=== PATIENT | male | born 1940 | race Caucasian/White ===

== ENCOUNTER 2018-08-31 16:49 | Emergency (ER) | payer MEDICARE ==
--- NOTE | 2018-08-31 16:57 | UC ---
Shoulder Pain HPI - HPI Summary HPI Summary: 78 y/o male presents to the urgent care c/o of left shoulder pain s/p falling yesterday around 1000AM while trowing a newspaper. Pt reports he threw the newspaper very hard that he lost balance and fell on his left shoulder. No pain at rest, but when he raises it is 2/10 w/ movement. He wants to make sure his shoulder is fine since he is traveling to [place] in 3 weeks. He Pt denies LOC , dizziness, numbness or tingling sensation over the left extremity, SOB, chest pain, abdominal pain, N/V/D. - History of Current Complaint Stated Complaint: SHOULDER INJURY Time Seen by Provider: 08/31/18 16:56 Hx Obtained From: Patient Onset/Duration: Sudden Onset, Lasting Days - 1 day, Still Present Timing: Constant Severity Initially: Mild Severity Currently: Mild Pain Intensity: 1 Pain Scale Used: 0-10 Numeric Character: Dull Aggravating Factor(s): Movement, Lifting, Abduction Alleviating Factor(s): Rest Associated Signs And Symptoms: Positive: Negative. Negative: Swelling, Redness , Bruising, Fever, Weakness, Numbness/Tingling Related History: Dominant Hand Right - Risk Factors Non-Orthopedic Risk Factor: Negative DVT Risk Factors: Negative Septic Arthritis Risk Factor: Negative - Allergies/Home Medications Allergies/Adverse Reactions: Allergies Allergy/AdvReac Type Severity Reaction Status Date / Time No Known Allergies Allergy Verified 08/31/18 16:52 Home Medications: Home Medications Nitroglycerin 0.1 mg/Hr PATCH* [Nitroglycerin 2.5 MG PATCH*] 1 patch TRANSDERM DAILY 08/31/18 [History Confirmed 08/31/18] Ubidecarenone [Coq10] 50 mg PO DAILY WITH MEAL 08/31/18 [History Confirmed 08/31] PMH/Surg Hx/FS Hx/Imm Hx Previously Healthy: Yes Endocrine History: Diabetes, Dyslipidemia Cardiovascular History: Cardiac Disease, Hypertension, Myocardial Infarction Other GI/ History: BPH - Surgical History Surgical History: Yes Surgery Procedure, Year, and Place: 2003-TURP, TONSILECTOMY A CHILD , BILATERAL HERNIA [id number], LASER EYE SURGERY-2007, CARDIAC STENT PLACEMENT IN 2006 AND 2008 BOTH TAXUS/HAS CARDS OK FOR OUR 3T ,bilat cataract removal laser, iridotomy bilat - Family History Known Family History: Positive: Hypertension, Diabetes - Social History Occupation: Retired Lives: With Family Alcohol Use: Weekly Substance Use Type: None Smoking Status (MU): Never Smoked Tobacco Have You Smoked in the Last Year: No Review of Systems All Other Systems Reviewed And Are Negative: Yes Constitutional: Positive: Negative Skin: Positive: Negative Eyes: Positive: Negative ENT: Positive: Negative Respiratory: Positive: Negative Cardiovascular: Positive: Negative Gastrointestinal: Positive: Negative Genitourinary: Positive: Negative Motor: Positive: Negative Neurovascular: Positive: Negative Musculoskeletal: Positive: Decreased ROM - left shoulder s/p fall, Other: - left shoulder pain s/p fall Neurological: Positive: Negative Psychological: Positive: Negative Is Patient Immunocompromised?: No Physical Exam - Summary Physical Exam Summary: Vital Signs Reviewed: Yes GENERAL: Well-Appearing, No Pain Distress, Well-Nourished old male w/o any apparent pain or respiratory distress Eyes: Positive: Conjunctiva Clear - PERRL,EOMI ENT: Positive: Normal ENT inspection, Hearing grossly normal, Pharyngeal erythema - mild, Nasal drainage - clear, Uvula midline Neck: Positive: Supple, Nontender, No Lymphadenopathy Respiratory: Positive: Chest non-tender, Lungs clear, Normal breath sounds, No respiratory distress Cardiovascular: Positive: RRR, No Murmur, Pulses Normal, Brisk Capillary Refill Abdomen Description: Positive: Nontender, No Organomegaly, Soft. Negative: CVA Tenderness (R), CVA Tenderness (L) Bowel Sounds: Positive: Present Musculoskeletal: LF shoulder: The L shoulder is without obvious asymmetry or deformity when compared to the R shoulder. NO ecchymosis or bruising, no crepitus. No bony deformity or prominence of humeral head. No erythema, warmth. No Point Tenderness to palpation over the clavicle, or scapula. positive tenderness over Acromioclavicular joint and humeral head with no swelling, NT to palpation of the bicipital groove . NT to palpation of the muscles of the sternocleidomastoid, pectoralis, biceps/triceps, deltoid, trapezius, . Limited ROM due to pain especially in adduction and abduction.on both passive and active , internal/external rotation, flexion/extension. "empty can and drop arm test unable to perform due to pain. No axillary tenderness or lymphadenopathy. Normal sensation over the deltoid and fingers. Distal motor and neurovascular status is intact. Neurological Exam: Normal Psychological Exam: Normal Skin Exam: Normal Triage Information Reviewed: Yes Shoulder Course/Dx - Course Course Of Treatment: 78 y/o male presents to the urgent care c/o of left shoulder pain s/p falling yesterday around 1000AM while trowing a newspaper. Pt reports he threw the newspaper very hard that he lost balance and fell on his left shoulder. No pain at rest, but when he raises it is 2/10 w/ movement. He wants to make sure his shoulder is fine since he is traveling to [place] in 3 weeks. He Pt denies LOC, dizziness, numbness or tingling sensation over the left extremity, SOB, chest pain, abdominal pain, N/V/D. Hx obtained. LF shoulder X-ray ordered: Impression: No acute osseous injury observed. Shoulder immobilized with a shoulder sling for 3 days. Advised to take Tylenol PO if he develops pain and given an Orthopedic referral if not improvement of symptoms in 1 week. Pt's BP is elevated today advised to decrease salt in diet, monitor BP and f/u with PCP for further management. D/c instructions explained. Pt understood and agreed w/ plan of care, Pt left clinic hemodynamically stable, A& OX3. - Differential Dx/Diagnosis Differential Diagnosis/HQI/PQRI: Arthritis, Contusion, Dislocation, Sprain, Strain, Tendonitis Provider Diagnosis: Left shoulder pain, Sprain of left shoulder, Uncontrolled hypertension Discharge - Sign-Out/Discharge Documenting (check all that apply): Patient Departure - d/C home All imaging exams completed and their final reports reviewed: Yes - Discharge Plan Condition: Stable Disposition: HOME Patient Education Materials: Shoulder Sprain (ED), Low-Sodium Diet (ED) Referrals: Ray Randle MD [Medical Doctor] - 1 Week Ryan Castellanos MD [Primary Care Provider] - 1 Week Additional Instructions: 1-Please take Tylenol PO q6hrs prn as directed to alleviate pain and swelling. Avoid heavy lifting or strenuous exercise 2-Please apply ice, keep your shoulder immobilized with the shoulder sling for 3 -4 days and then resume movement slowly. 3- Please f/u with Orthopedic Dr Randle or your PCP in 1 week is not improvement of symptoms for further evaluation and treatment. 4-Pt's BP is elevated today advised to decrease salt in diet, monitor BP and f/ u with PCP for further management. - Billing Disposition and Condition Condition: STABLE Disposition: Home
[2018-08-31 17:00] VITALS: BP 152/68
== END 2018-08-31 18:18 | disposition home or self-care (01) ==
LOC: UCEAST 16:49
DX: S43.402A Unspecified sprain of left shoulder joint, initial encounter (principal); W18.30XA Fall on same level, unspecified, initial encounter; Y92.9 Unspecified place or not applicable; I25.10 Atherosclerotic heart disease of native coronary artery without angina pectoris; I10 Essential (primary) hypertension; Z95.5 Presence of coronary angioplasty implant and graft
CPT/HCPCS: 99212; G0463

== ENCOUNTER 2020-03-26 19:36 | Inpatient (IN) ==
[2020-03-26] MEDS ORDERED: Heparin DRIP 25,000 UNITS BAG 25,000 UNITS/500 ML BAG IV SCH ×2 (20:30→22:19)
[2020-03-26 20:33] LABS: ABS Lymphocytes 1.2 10^3/ul (1.0-4.8); ABS Monocytes 0.4 10^3/ul (0-0.8); Eosinophil % 0.3 %; Hematocrit 40 % (42-52); Hemoglobin 13.9 g/dL (14.0-18.0); Lymphocyte % 21.3 %; Mean Corpuscular HGB Conc 35 g/dL (31-36); Mean Corpuscular Hemoglobin 32 pg (27-31); Mean Corpuscular Volume 92 fL (80-94); Mean Platelet Volume 7.2 fL (7.4-10.4); Platelet Count 254 10^3/uL (150-450); Red Blood Count 4.31 10^6 /uL (4.18-5.48); Red Cell Distribution Width 14 % (10-15); White Blood Count 5.7 10^3/uL (3.5-10.8)
[2020-03-26 20:55] LABS: ALT 18 U/L (7-52); AST 17 U/L (13-39); Albumin 4.1 g/dL (3.2-5.2); Albumin/Globulin Ratio 1.8 (1-3); Alkaline Phosphatase 54 U/L (34-104); Anion Gap 6 mmol/L (2-11); BUN/Creatinine Ratio 15.8 (8-20); Blood Urea Nitrogen 18 mg/dL (6-24); CO2 Carbon Dioxide 29 mmol/L (22-32); Calcium 9.2 mg/dL (8.6-10.3); Chloride 99 mmol/L (101-111); EGFR African American 74.4 (>60); EGFR Non-African American 61.5 (>60); Globulin 2.3 g/dL (2-4); Glucose 223 mg/dL (70-100); Magnesium 1.8 mg/dL (1.9-2.7); Sodium 134 mmol/L (135-145); Total Protein 6.4 g/dL (6.4-8.9)
[2020-03-26] MEDS ORDERED: Heparin 5000 UNITS/ML 1 mL VIAL IV SCH (21:00)
[2020-03-26 21:07] LABS: Activated Partial Thrombo Time 33.5 seconds (26.0-38.0); INR 0.98 (0.82-1.09)
[2020-03-26] MEDS ORDERED: Al Hydrox/Mg Hydrox/Simet LIQ 30 ML UDC PO PRN (21:34)
[2020-03-26] MEDS ORDERED: Ondansetron 4 mg VIAL 2 MG/ML 2 ml VIAL IV PRN (21:34)
[2020-03-26] MEDS ORDERED: Dextrose 50% Syringe 50 ml 25 GM/50 ML SYRINGE IV PUSH PRN (21:45)
[2020-03-27 00:38] LABS: Troponin I 0.13 ng/mL (<0.03)
[2020-03-27 04:46] LABS: Anion Gap 7 mmol/L (2-11); BUN/Creatinine Ratio 16.7 (8-20); Blood Urea Nitrogen 17 mg/dL (6-24); CO2 Carbon Dioxide 25 mmol/L (22-32); Calcium 8.7 mg/dL (8.6-10.3); Chloride 104 mmol/L (101-111); Cholesterol 100 mg/dL; EGFR African American 84.6 (>60); EGFR Non-African American 69.9 (>60); Glucose 108 mg/dL (70-100); HDL Cholesterol 52.6 mg/dL; LDL Cholesterol 39 mg/dL; Potassium 3.7 mmol/L (3.5-5.0); Sodium 136 mmol/L (135-145); Triglycerides 40 mg/dL
[2020-03-27 04:55] LABS: Troponin I 0.12 ng/mL (<0.03)
[2020-03-27 06:00] LABS: Activated Partial Thrombo Time 95.7 seconds (26.0-38.0); INR 1.02 (0.82-1.09)
[2020-03-27 06:06] LABS: ABS Eosinophils 0.1 10^3/ul (0-0.6); ABS Monocytes 0.5 10^3/ul (0-0.8); ABS Neutrophils 2.7 10^3/ul (1.5-7.7); Eosinophil % 1.3 %; Hematocrit 35 % (42-52); Hemoglobin 12.6 g/dL (14.0-18.0); Lymphocyte % 37.5 %; Mean Corpuscular HGB Conc 36 g/dL (31-36); Mean Corpuscular Hemoglobin 33 pg (27-31); Mean Corpuscular Volume 91 fL (80-94); Mean Platelet Volume 7.7 fL (7.4-10.4); Platelet Count 219 10^3/uL (150-450); Red Blood Count 3.87 10^6 /uL (4.18-5.48); Red Cell Distribution Width 14 % (10-15); White Blood Count 5.3 10^3/uL (3.5-10.8)
[2020-03-27 08:11] LABS: Troponin I 0.11 ng/mL (<0.03)
[2020-03-27 08:34] LABS: Magnesium 1.9 mg/dL (1.9-2.7)
[2020-03-27] MEDS: Nitroglycerin 0.2 mg/hr PATCH (5 mg) TRANSDERM SCH (09:31)
[2020-03-27] MEDS ORDERED: methylPREDNISolone 125 mg 2 ML VIAL IV ONE (09:34)
[2020-03-27 09:45] LABS: ABS Eosinophils 0.1 10^3/ul (0-0.6); ABS Lymphocytes 1.6 10^3/ul (1.0-4.8); ABS Monocytes 0.5 10^3/ul (0-0.8); ABS Neutrophils 2.4 10^3/ul (1.5-7.7); Eosinophil % 1.3 %; Hematocrit 38 % (42-52); Hemoglobin 13.6 g/dL (14.0-18.0); Lymphocyte % 34.7 %; Mean Corpuscular HGB Conc 35 g/dL (31-36); Mean Corpuscular Hemoglobin 33 pg (27-31); Mean Corpuscular Volume 92 fL (80-94); Mean Platelet Volume 7.3 fL (7.4-10.4); Nucleated Red Blood Cells % 0.1; Platelet Count 234 10^3/uL (150-450); Red Blood Count 4.16 10^6 /uL (4.18-5.48); Red Cell Distribution Width 14 % (10-15); White Blood Count 4.6 10^3/uL (3.5-10.8)
[2020-03-27] MEDS: GLUCOSAMINE CHONDROITIN PO SCH (09:53)
[2020-03-27] MEDS: Coenzyme Q10 CAP (NF) ** ENTER STREGNTH IN LABEL DIRECTIONS PO SCH (09:53)
[2020-03-27] MEDS ORDERED: diPHENhydraMINE 25 mg TAB ONE (12:32)
[2020-03-27] MEDS ORDERED: fentaNYL 100 mcg/2 ml 50 MCG/ML VIAL ONE (12:38)
[2020-03-27] MEDS ORDERED: Heparin 1,000 UNIT/ML 10 ml (10,000 UNITS) CATHLAB/DIALYSIS ONE (12:39)
[2020-03-27] MEDS ORDERED: Midazolam 5 mg/5 ml VIAL 1 mg/ml 5 ml VIAL (5 mg) ONE (12:39)
[2020-03-27] MEDS ORDERED: nitroGLYCERIN DRIP 25,000 MCG/250 ML BTL ONE (12:39)
[2020-03-27] MEDS ORDERED: VERAPAMIL 2.5 MG/ML 2 ML VIAL ** 5 mg/2 ml ONE (12:39)
[2020-03-27] MEDS ORDERED: Lidocaine 1% VIAL 10 MG/ML VIAL ONE (12:39)
[2020-03-27] MEDS ORDERED: Heparin 2 UNITS/ML 1000 mls 2,000 ML IV ONE (12:39)
[2020-03-27] MEDS ORDERED: Iohexol 350 (CONTRAST) 200 ML MDV IV ONE (12:40)
[2020-03-27] MEDS ORDERED: NS 0.9% 1000 ml BAG 1,000 ML IV SCH (14:37)
[2020-03-27] MEDS ORDERED: Labetalol IV 5 MG/ML 20 ml VIAL IV ONE (16:15)
[2020-03-27] MEDS: NS 0.9% 1000 ml BAG 1,000 ML IV SCH (16:24)
[2020-03-27 19:03] LABS: Creatine Kinase 50 U/L (10-223)
[2020-03-27 19:09] LABS: CKMB ng/mL 1.8 ng/mL (0.6-6.3)
[2020-03-27 19:14] LABS: Troponin I 0.08 ng/mL (<0.03)
[2020-03-27] MEDS ORDERED: Nitro Patch/OINT Remove PATCH PATCH OFF SCH (21:00)
[2020-03-28] MEDS: NS 0.9% 1000 ml BAG 1,000 ML IV SCH (01:59)
[2020-03-28 03:33] LABS: Creatine Kinase 52 U/L (10-223)
[2020-03-28 03:40] LABS: CKMB ng/mL 2.8 ng/mL (0.6-6.3)
[2020-03-28 03:42] LABS: Troponin I 0.25 ng/mL (<0.03)
[2020-03-28 06:17] LABS: Albumin 3.2 g/dL (3.2-5.2); Albumin/Globulin Ratio 1.5 (1-3); BUN/Creatinine Ratio 19.8 (8-20); Calcium 8.1 mg/dL (8.6-10.3); EGFR African American 76.7 (>60); EGFR Non-African American 63.4 (>60); Globulin 2.1 g/dL (2-4); HDL Cholesterol 49.5 mg/dL; Potassium 3.8 mmol/L (3.5-5.0); Total Bilirubin 0.5 mg/dL (0.2-1.0); Total Protein 5.3 g/dL (6.4-8.9)
[2020-03-28] MEDS: GLUCOSAMINE CHONDROITIN PO SCH (09:35)
[2020-03-28] MEDS: Coenzyme Q10 CAP (NF) ** ENTER STREGNTH IN LABEL DIRECTIONS PO SCH (09:35)
[2020-03-28] MEDS: Nitroglycerin 0.2 mg/hr PATCH (5 mg) TRANSDERM SCH (09:35)
[2020-03-28 10:27] LABS: ABS Basophils 0.1 10^3/ul (0-0.2); ABS Lymphocytes 2.4 10^3/ul (1.0-4.8); ABS Monocytes 0.8 10^3/ul (0-0.8); ABS Neutrophils 7.5 10^3/ul (1.5-7.7); Eosinophil % 0.1 %; Hematocrit 42 % (42-52); Hemoglobin 14.7 g/dL (14.0-18.0); Mean Corpuscular HGB Conc 35 g/dL (31-36); Mean Corpuscular Hemoglobin 32 pg (27-31); Mean Corpuscular Volume 93 fL (80-94); Mean Platelet Volume 7.6 fL (7.4-10.4); Nucleated Red Blood Cells % 0.1; Platelet Count 273 10^3/uL (150-450); Red Blood Count 4.54 10^6 /uL (4.18-5.48); Red Cell Distribution Width 14 % (10-15); White Blood Count 10.8 10^3/uL (3.5-10.8)
[2020-03-29 06:24] LABS: ABS Lymphocytes 1.8 10^3/ul (1.0-4.8); ABS Monocytes 0.5 10^3/ul (0-0.8); ABS Neutrophils 3.9 10^3/ul (1.5-7.7); Eosinophil % 0.7 %; Hematocrit 37 % (42-52); Hemoglobin 12.8 g/dL (14.0-18.0); Lymphocyte % 27.8 %; Mean Corpuscular HGB Conc 35 g/dL (31-36); Mean Corpuscular Hemoglobin 32 pg (27-31); Mean Corpuscular Volume 92 fL (80-94); Mean Platelet Volume 7.3 fL (7.4-10.4); Nucleated Red Blood Cells % 0.1; Platelet Count 224 10^3/uL (150-450); Red Blood Count 3.97 10^6 /uL (4.18-5.48); Red Cell Distribution Width 14 % (10-15); White Blood Count 6.3 10^3/uL (3.5-10.8)
[2020-03-29 06:41] LABS: Anion Gap 5 mmol/L (2-11); BUN/Creatinine Ratio 17.8 (8-20); Blood Urea Nitrogen 18 mg/dL (6-24); CO2 Carbon Dioxide 26 mmol/L (22-32); Calcium 8.3 mg/dL (8.6-10.3); Chloride 106 mmol/L (101-111); EGFR African American 85.6 (>60); EGFR Non-African American 70.7 (>60); Glucose 129 mg/dL (70-100); Sodium 137 mmol/L (135-145)
[2020-03-29 06:49] LABS: Troponin I 0.22 ng/mL (<0.03)
[2020-03-29] MEDS: GLUCOSAMINE CHONDROITIN PO SCH (08:48)
[2020-03-29] MEDS: Coenzyme Q10 CAP (NF) ** ENTER STREGNTH IN LABEL DIRECTIONS PO SCH (08:48)
[2020-03-29 11:27] VITALS: BP 133/60
== END 2020-03-29 13:15 | disposition home or self-care (01) | DRG 247 ==
LOC: ED 19:36 → MEDTELE 21:34 → ICU 03-27 14:29 → MEDTELE 03-28 12:21
PROVIDERS: ADMIT Pediatrics; ATTEND Internal Medicine